=== PATIENT | female | born 1965 | race Caucasian/White ===

== ENCOUNTER 2023-02-28 08:35 | Emergency (ER) | payer OTHER ==
[~2023-02-28] VITALS: Ht 165.1 cm; Wt 59.0 kg
[~2023-02-28 08:35] MED LIST: ATENOLOL25 MG; CATAFLAM50 MG PO; METFORMIN HCL500 MG
== END 2023-02-28 13:12 ==
LOC: ER 08:35
DX: M94.0 Chondrocostal junction syndrome [Tietze] (principal); E11.9 Type 2 diabetes mellitus without complications; Z79.84 Long term (current) use of oral hypoglycemic drugs

== ENCOUNTER 2023-08-01 13:31 | Emergency (ER) | payer OTHER ==
[~2023-08-01] VITALS: Ht 165.1 cm; Wt 59.0 kg
[2023-08-01] MEDS ORDERED: ROSUVASTATIN CA40 MG PO (14:06)
== END 2023-08-01 17:54 | disposition home or self-care (01) ==
LOC: ER 13:31
DX: R07.1 Chest pain on breathing (principal)

== ENCOUNTER 2023-10-16 11:42 | Emergency (ER) | payer OTHER ==
[~2023-10-16] VITALS: Ht 165.1 cm; Wt 59.0 kg
[~2023-10-16 11:42] MED LIST changes: +ROSUVASTATIN CA40 MG PO
== END 2023-10-16 15:40 | disposition home or self-care (01) ==
LOC: ER 11:42
DX: B34.9 Viral infection, unspecified (principal); E11.9 Type 2 diabetes mellitus without complications; Z79.84 Long term (current) use of oral hypoglycemic drugs; I10 Essential (primary) hypertension